=== PATIENT | male | born 1945 | race Caucasian/White ===

== ENCOUNTER 2025-01-14 14:36 | Emergency (ER) | payer MEDICARE, OTHER ==
[2025-01-14] MEDS ORDERED: LORazepam 1 MG Tab PO ONE (15:36)
[2025-01-14] MEDS: Lidocaine 1% with EPINEPHrine 1:100,000 20 ML MDV INJECT ONE (18:14)
== END 2025-01-14 18:10 | disposition home or self-care (01) ==
LOC: JD.ED 14:36
DX: S01.412A Laceration without foreign body of left cheek and temporomandibular area, initial encounter (principal); I10 Essential (primary) hypertension; E78.00 Pure hypercholesterolemia, unspecified; K21.9 Gastro-esophageal reflux disease without esophagitis; W01.198A Fall on same level from slipping, tripping and stumbling with subsequent striking against other object, initial encounter; Y93.89 Activity, other specified
CPT/HCPCS: 12011; 70450; 99283; J2004; 12013